=== PATIENT | male | born 1985 ===

== ENCOUNTER 2016-12-26 17:03 | Inpatient (IN) | payer BC, MEDICAID ==
[2016-12-26 18:27] LABS: BASO % 0.7 % (0.0-2.0); EOS # 0.1 K/uL (0.0-0.7); EOS % 0.9 % (0.0-4.0); HEMATOCRIT 44.3 % (35.0-51.0); LYMPH # 2.1 K/uL (1.0-4.3); LYMPH % 31.5 % (20.0-40.0); MEAN CELL VOLUME 96.1 fL (80.0-94.0); MEAN CORPUSCULAR HEMOGLOBIN 33.1 pg (27.0-31.0); MEAN CORPUSCULAR HGB CONC 34.4 g/dL (33.0-37.0); MEAN PLATELET VOLUME 8.5 fL (7.2-11.7); MONO # 0.7 K/uL (0.0-0.8); MONO % 10.1 % (0.0-10.0); RED CELL DISTRIBUTION WIDTH 14.6 % (11.5-14.5); WHITE BLOOD COUNT 6.6 K/uL (4.8-10.8)
[2016-12-26 18:33] LABS: URINE BILIRUBIN NEGATIVE (NEGATIVE); URINE BLOOD NEGATIVE (NEGATIVE); URINE COLOR Colorless (YELLOW); URINE GLUCOSE (UA) NORMAL (Normal); URINE KETONE NEGATIVE (NEGATIVE); URINE LEUKOCYTE ESTERASE NEG Leu/uL (Negative); URINE PROTEIN NEGATIVE (NEGATIVE); URINE UROBILINOGEN NORMAL mg/dL (0.2-1.0); WBC URINE < 1 /hpf (0-5)
--- NOTE | 2016-12-26 18:37 | C.PDOC ---
History Of Present Illness <Nat Miller - Last Filed: 12/26/16 18:48> <RajatcharleyAmecesar Art - Last Filed: 12/27/16 00:08> 31 y/o male comes in prescreened for detox for polysubstance abuse. Patient admits his last use was today. Denies SI, HI, or somatic complaints at this time. (Angela,Nat Garner) History Per: Patient History/Exam Limitations: no limitations Onset/Duration Of Symptoms: Days Current Symptoms Are (Timing): Still Present Suicide/Self Injury Attempted (Context): None Modifying Factor(s): Alcohol, Marijuana, Narcotics Severity: Mild Associated Symptoms: denies: Suicidal Thoughts, Suicidal Plan Involuntary Hold By: None Recent travel outside of the [place]: No Additional History Per: Patient <Nat Miller - Last Filed: 12/26/16 18:48> <EricAme Kaelyn - Last Filed: 12/27/16 00:08> Time Seen by Provider: 12/26/16 17:45 Chief Complaint (Nursing): Substance Abuse Past Medical History Reviewed: Historical Data, Nursing Documentation, Vital Signs - Medical History PMH: No Chronic Diseases Surgical History: No Surg Hx Family History: States: Unknown Family Hx - Social History Hx Alcohol Use: Yes Hx Substance Use: Yes - Immunization History Hx Tetanus Toxoid Vaccination: No Hx Influenza Vaccination: Yes (2016) Hx Pneumococcal Vaccination: No <Silvia Millerbealex Garner - Last Filed: 12/26/16 18:48> Vital Signs: Last Vital Signs Temp 97.5 F L 12/26/16 17:05 Pulse 71 12/26/16 17:05 Resp 20 12/26/16 17:05 BP 129/83 12/26/16 17:05 Pulse Ox 97 12/26/16 18:51 Review Of Systems Except As Marked, All Systems Reviewed And Found Negative. Constitutional: Positive for: Other (Polysubstance abuse). Negative for: Fever , Chills Cardiovascular: Negative for: Chest Pain Respiratory: Negative for: Shortness of Breath Gastrointestinal: Negative for: Abdominal Pain Skin: Negative for: Rash Psych: Positive for: Anxiety. Negative for: Psychosis, Suicidal ideation, Other (HI) <Nat Miller - Last Filed: 12/26/16 18:48> Physical Exam - Physical Exam Appears: Non-toxic, No Acute Distress, Other (Appears anxious) Skin: Warm, Dry Head: Atraumatic, Normacephalic Eye(s): bilateral: Normal Inspection Oral Mucosa: Moist Chest: Symmetrical Cardiovascular: Rhythm Regular, No Murmur Respiratory: Normal Breath Sounds, No Rales, No Rhonchi, No Wheezing Gastrointestinal/Abdominal: Soft, No Tenderness Back: Normal Inspection, No CVA Tenderness Neurological/Psych: Oriented x3 <Nat Miller - Last Filed: 12/26/16 18:48> ED Course And Treatment - Laboratory Results Result Diagrams: 12/26/16 18:21 12/26/16 18:21 Lab Interpretation: Normal O2 Sat by Pulse Oximetry: 97 (RA) Pulse Ox Interpretation: Normal Progress Note: Case discussed with crisis test engine evaluator who request labs and will evaluate for Detox admission Reassessment Condition: Unchanged <Nat Miller - Last Filed: 12/26/16 18:48> - Laboratory Results Result Diagrams: 12/26/16 18:21 12/26/16 18:21 <Ame Reyes - Last Filed: 12/27/16 00:08> Medical Decision Making <Nat Miller - Last Filed: 12/26/16 18:48> <Ame Reyes - Last Filed: 12/27/16 00:08> Medical Decision Making: Plans: * Blood labs * UA (Nat Miller) Disposition - Disposition Disposition Time: 19:00 - POA Present On Arrival: None <Nat Miller - Last Filed: 12/26/16 18:48> - Disposition Disposition Time: 00:07 <mAe Reyes - Last Filed: 12/27/16 00:08> - Disposition Condition: STABLE Forms: [facility] (Bots[place]an) - Clinical Impression Clinical Impression: Drug abuse, Alcohol abuse - Scribe Statement The provider has reviewed the documentation as recorded by the Scribe <Nat Miller - Last Filed: 12/26/16 18:48> <Ame Reyes - Last Filed: 12/27/16 00:08> - Scribe Statement Tonie quigley All medical record entries made by the Scribe were at my direction and personally dictated by me. I have reviewed the chart and agree that the record accurately reflects my personal performance of the history, physical exam, medical decision making, and the department course for this patient. I have also personally directed, reviewed, and agree with the discharge instructions and disposition. (Nat Miller) Physician Patient Turnover Patient Signed Over To: Ame Reyes Handoff Comments: pending crisis evaluation <Nat Miller - Last Filed: 12/26/16 18:48> Handoff Comments: Patient signed over to Dr Concepcion pending admission for alcohol detox. <Ame Reyes - Last Filed: 12/27/16 00:08>
[2016-12-26 18:46] LABS: ALKALINE PHOSPHATASE 76 U/L (38-126); ALT/SGPT 117 U/L (21-72); AST/SGOT 70 U/L (17-59); BILIRUBIN,TOTAL 0.7 mg/dL (0.2-1.3); BLOOD UREA NITROGEN 10 mg/dL (9-20); CALCIUM 8.8 mg/dl (8.6-10.4); CARBON DIOXIDE 26 mmol/L (22-30); CHLORIDE 104 mmol/L (98-107); GFR AFRICAN-AMERICAN > 60; GLUCOSE,RANDOM 89 mg/dL (75-110); POTASSIUM 3.8 mmol/L (3.6-5.2); SODIUM 145 mmol/L (132-148); TOTAL PROTEIN 8.3 g/dL (6.3-8.3)
[2016-12-26 19:11] LABS: ALB/GLOB RATIO 1.4 (1.0-2.1)
[2016-12-26 19:12] LABS: ALCOHOL SERUM 397 mg/dl (0-10)
--- NOTE | 2016-12-27 06:51 | PCM.BM ---
<David Bennett - Last Filed: 12/27/16 06:50> Treatment Plan Problems - Problems identified on initial assessmt Alcohol Abuse Date Initiated: 12/27/16 Time Initiated: 05:45 Assessment reference: NA Status: Active Treatment assets and liabiliti Patient Assests: motivated, ADL independent, physically healthy, good support system, negotiates basic needs, good past tx response Patient Liabilities: substance abuse (ETOH), medical problems - Milieu Protocol Maintain good personal hygiene: daily Encourage regular showers, daily Remind patient to perform daily oral care Conduct patient checks and document Observation sheet: Q15 minutes Maintain personal safety: every shift Educate patient to report safety concerns to staff, every shift Monitor environment for contraband/sharps Medication safety: Monitor for expected outcome, potential side effects: every shift, Assess barriers to learning: every shift, Assess readiness for medication education: every shift <Ryan Guillen - Last Filed: 12/28/16 00:28> - Diagnosis (1) Alcohol use disorder, severe, dependence Status: Acute Interventions: 12/28/16 00:28 * Assess 7x/week regarding severity of withdrawal * Educate regarding risks, benefits, side effects and alternatives of medications * Use Motivational Interviewing for abstinence * Use CBT for relapse prevention * Medication management for withdrawal symptoms * Encourage medication assisted treatment *
[2016-12-27] MEDS ORDERED: Multiple Vitamins Tab PO SCH (10:00)
[2016-12-27] MEDS: Multiple Vitamins Tab PO SCH (10:50)
--- NOTE | 2016-12-27 13:25 | PCM.PSYCH ---
Initial Psychiatric Evaluation - Initial Psychiatric Evaluation Type of Admission: Voluntary Legal Status: Capacity Chief Complaint (in patient's own words): "Not doing well" History of Present Illness and Precipitating Events: The patient is seen, chart reviewed and case discussed. This is a 31-year-old male, single with no child, living with his girlfriend and works as a construction consultant. The patient is here for alcohol detox; drinking 2 pints for the last almost 20 years. This is his second detox and he was also in rehabilitation 1 time "long ago" He used naltrexone in the past but doesn't take it anymore and he did not go to . He also inhales cocaine for the last 5 years "on and off;" approximately twice a week. He smokes up to 5 joints a day since his teenage years and sometimes uses PCP. His urine was negative this time. He denies all other drugs but smokes 1 ppd He has some depressive symptoms and anxiety. Past psych history: He was given Remeron for depression but never been hospitalized. No suicide attempts Family psych history: Lots of alcoholism and drug use. One of the uncles who abused alcohol also had psychiatric problems. Medical history: Denies Current Medications: Active Medications Generic Name Dose Route Start Last Admin Trade Name Freq PRN Reason Stop Dose Admin Clonidine HCl 0.1 mg 12/27/16 06:29 Catapres PO Q6 PRN Symptoms of alcohol withdrawl Folic Acid 1 mg 12/27/16 10:00 12/27/16 09:38 Folic Acid PO 1 mg DAILY CASSIE Administration Gabapentin 300 mg 12/27/16 11:00 12/27/16 11:11 Neurontin PO 300 mg BID CASSIE Administration Lorazepam 2 mg 12/27/16 11:00 12/27/16 11:11 Ativan PO 01/01/17 10:59 2 mg Q6H CASSIE Administration Taper Mirtazapine 15 mg 12/27/16 22:00 Remeron PO HS CASSIE Multivitamins 1 tab 12/27/16 11:00 12/27/16 10:50 Hexavitamin PO Not Given DAILY CASSIE Pneumococcal Polyvalent Vaccine 0.5 ml 12/30/16 10:00 Pneumovax 23 Vaccine IM 12/30/16 10:01 .ONCE ONE Thiamine HCl 100 mg 12/27/16 10:00 12/27/16 09:38 Vitamin B1 Tab PO 100 mg DAILY CASSIE Administration Past Psychiatric History - Past Psychiatric History Previous Treatment History: Intensive Outpatient Pertinent Medical Hx (Current Medical&Sleep Prob, Allergies): Allergies Allergy/AdvReac Type Severity Reaction Status Date / Time No Known Allergies Allergy Verified 12/26/16 17:15 No Known Home Med 12/26/16 Review of Systems - Neurological Neurological: UNREMARKABLE - Psychiatric Psychiatric: Abnormal Sleep Pattern, Anxiety, Change in Appetite, Difficulty Concentrating. absent: Hallucinations, Homicidal Ideation, Suicidal Ideation Mental Status Examination - Personal Presentation Personal Presentation: Looks stated age - Affect Affect: Constricted - Motor Activity Motor Activity: Calm - Reliability in Providing Information Reliability in Providing Information: Good - Speech Speech: Organized - Mood Mood: Depressed, Anxious - Formal Thought Process Formal Thought Process: No Impairment - Cognitive Functions Orientation: Person, Place, Situation, Time Sensorium: Alert Attention/Concentration: Attentive Estimate of Intelligence: Average Judgement: Intact, as evidence by: Insight regarding need for hospitalization Memory: Recent intact, as evidence by: Ability to recall events of the day, Remote intact, as evidenced by: Abilit to recall sig. life events - Risk Risk: Seizure, Withdrawal, Diminished functioning - Strength & Assets Inventory Strength & Assets Inventory: Cooperative - Limitations Limitations: Other DSM 5 DX - DSM 5 DSM 5 Diagnosis: Alcohol withdrawal Alcohol use disorder, severe Cocaine use disorder, moderate Cannabis use disorder, severe PCP use disorder, moderate Tobacco use disorder Depressive disorder, unspecified - Recommended/Plan of Treatment Treatment Recommendations and Plan of Treatment: Ativan detox As needed medications Gabapentin for augmentation Attend groups and activities Supportive therapy and psychoeducation [place] for abstinence CBT for relapse prevention Encourage MAT - topamax for now Refer to rehab or IOP Attend self-help groups as well remeron for depression/insomnia Patch and [place] for smoking 34 min Projected ELOS: 4-5 days Prognosis: good with treatment Discharge Plan and Discharge Criteria: No wdw sxs Refer to IOP and AA, consider rehab and MAT - Smoking Cessation Smoking Cessation Initiated: Yes
[2016-12-28] MEDS: Multiple Vitamins Tab PO SCH (09:52)
--- NOTE | 2016-12-28 13:26 | PCM.PYCHPN ---
Psychiatric Progress Note - Psychiatric Progress Note Patient seen today, length of contact: 16 min Patient Chief Complaint: "Better today" Problems Identified/Issues Discussed: The pt is seen, chart reviewed, case discussed with staff. The pt is compliant with medications and reports no side-effects. Symptoms are improving but needs more time to stabilize. After care discussed, support and psychoeducation given. Medication Change: Yes (detox changes daily) Medical Record Reviewed: Yes Mental Status Examination - Cognitive Function Orientation: Person, Place, Situation, Time Memory: Intact Attention: WNL Concentration: WNL Association: WNL Fund of Knowledge: WNL - Mood Mood: Depressed, Anxious - Affect Affect: Constricted - Speech Speech: Appropriate - Formal Thought Process Formal Thought Process: No Impairment - Suicidal Ideation Suicidal Ideation: No - Homicidal Ideation Homicidal Ideation: No Goal/Treatment Plan - Goal/Treatment Plan Need for Continued Stay: Discharge may exacerbated symptoms, Severe functional impairment Progress Toward Problem(s) and Goals/Treatment Plan: Ativan detox As needed medications Gabapentin for augmentation Attend groups and activities Supportive therapy and psychoeducation [place] for abstinence CBT for relapse prevention Encourage MAT - topamax for now Refer to rehab or IOP Attend self-help groups as well remeron for depression/insomnia Patch and [place] for smoking
[2016-12-29] MEDS: Multiple Vitamins Tab PO SCH (09:24)
--- NOTE | 2016-12-29 17:31 | PCM.PYCHPN ---
Psychiatric Progress Note - Psychiatric Progress Note Patient seen today, length of contact: 16 min Patient Chief Complaint: "I nicotine craving and need nicotine patch" Problems Identified/Issues Discussed: The pt is seen, chart reviewed, case discussed with staff. The pt reported that he has nicotine craving and need a nicotine patch. Support given, CBT and [place] used briefly No new symptoms reported, improving slowly and needs more time No SEs from medications, risks discussed. After care discussed DSM 5 Symptoms Update: Alcohol withdrawal Alcohol use disorder, severe Cocaine use disorder, moderate Cannabis use disorder, severe PCP use disorder, moderate Tobacco use disorder Depressive disorder, unspecified Medication Change: Yes (detox changes daily) Medical Record Reviewed: Yes Mental Status Examination - Cognitive Function Orientation: Person, Place, Situation, Time Memory: Intact Attention: WNL Concentration: WNL Association: WNL Fund of Knowledge: WN Decription of patient's judgement and insights: fair/fair - Mood Mood: Depressed, Anxious - Affect Affect: Constricted - Speech Speech: Appropriate - Formal Thought Process Formal Thought Process: No Impairment - Suicidal Ideation Suicidal Ideation: No - Homicidal Ideation Homicidal Ideation: No Goal/Treatment Plan - Goal/Treatment Plan Need for Continued Stay: Discharge may exacerbated symptoms, Severe functional impairment Progress Toward Problem(s) and Goals/Treatment Plan: Ativan detox As needed medications Gabapentin for augmentation Attend groups and activities Supportive therapy and psychoeducation [place] for abstinence CBT for relapse prevention Encourage MAT - topamax for now Refer to rehab or IOP Attend self-help groups as well remeron for depression/insomnia Patch and [place] for smoking Estimated Date of D/C: 12/31/16 - Smoking Cessation Smoking Cessation Initiated: Yes
[2016-12-29 18:37] VITALS: RESP 18
[2016-12-30 09:35] VITALS: BP 120/85; PULSE 89; TEMP 97.7; O2SAT 100
[2016-12-30] MEDS: Multiple Vitamins Tab PO SCH (09:59)
[2016-12-30] MEDS ORDERED: Influenza Vaccine 60 mcg/0.5 mL SYR (4YR UP) IM ONE (10:00)
[2016-12-30] MEDS ORDERED: Pneumococcal 23-Valent Vaccine IM ONE (10:00)
--- NOTE | 2016-12-30 10:33 | PCM.PYCHDC ---
Mental Status Examination - Mental Status Examination Orientation: Person, Place, Situation, Time Memory: Intact Mood: Neutral Affect: Other (euthymic) Speech: Appropriate Attention: WNL Concentration: WNL Association: WNL Fund of Knowledge: WNL Formal Thought Process: No Impairment Description of patient's judgement and insight: fair/fair Psychotic Thoughts and Behaviors: denied Suicidal Ideation: No Current Homicidal Ideation?: No Discharge Summary - Discharge Note Reason for Hospitalization: The patient is here for alcohol detox; drinking 2 pints for the last almost 20 years. This is his second detox and he was also in rehabilitation 1 time "long ago" He used naltrexone in the past but doesn't take it anymore and he did not go to . He also inhales cocaine for the last 5 years "on and off;" approximately twice a week. He smokes up to 5 joints a day since his teenage years and sometimes uses PCP. His urine was negative this time. He denies all other drugs but smokes 1 ppd He has some depressive symptoms and anxiety. Past psych history: He was given Remeron for depression but never been hospitalized. No suicide attempts Family psych history: Lots of alcoholism and drug use. One of the uncles who abused alcohol also had psychiatric problems. Consultations:: List each consultation separately and include: 1. Reason for request. 2. Findings. 3. Follow-up Summary of Hospital Course include:: 1. Description of specific treatment plan utilized for patients during their course of treatmen. 2. Summarize the time- course for resolution of acute symptoms and/or regressed behaviors. 3. Describe issues identified and worked on during hospitalization. 4. Describe medication utilized. 5. Describe medical problems identified and treated. 6. Reassessment of suicide risk Summary of Hospital Course: The pt was admitted and started on treatment with psychotherapy, support, psychoeducation and medications. [place] and CBT used. The pt requested to leave earlier. He did not completed Ativan taper detox for etoh. at the time of d/c he denied etoh withdrawal symptoms. He denied tremors, n/z, hot and cold flashes. His vitals were stable. He was educated that he needs to complete his detox. Psychoeducation was provided regarding relapse issues, withdrawal symptoms, DT. he verbalized understanding and stated that he will return if he had any symptoms. He stated that he is doing well and he has to move from [place] to [place] as he has job interview tomorrow as well as he had an appointment with drug rehab program in [place] on Saturday at 9am. He was d/c with meds prescriptions. The pt attended groups and activities, as well as milieu therapy. All the risks and benefits of medications are discussed and the patient understood and agreed. The pt improved with the treatments provided. After care discussed with the patient. at the time of d/c he denied SI, HI, intent or plan. He denied perceptual disturbances. Time spend 25 minutes - Diagnosis (1) Alcohol abuse Status: Resolved (2) Alcohol use disorder, severe, dependence Status: Resolved (3) Drug abuse Status: Resolved - Final Diagnosis (DSM 5) Condition upon Discharge: STABLE Disposition: HOME/ ROUTINE Follow-up Treatment Plan: Ativan detox As needed medications Gabapentin for augmentation Attend groups and activities Supportive therapy and psychoeducation [place] for abstinence CBT for relapse prevention Encourage MAT - topamax for now Refer to rehab or IOP Attend self-help groups as well remeron for depression/insomnia Patch and [place] for smoking Prescriptions/Medication Reconciliation: Gabapentin [Neurontin] 300 mg PO BID 15 Days #30 cap Mirtazapine [Remeron] 15 mg PO HS 15 Days #15 tab Multivitamins [Hexavitamin] 1 tab PO DAILY 30 Days #30 tab Topiramate [Topamax] 50 mg PO BID 15 Days #30 tab traZODone [Desyrel] 100 mg PO HS 15 Days #15 tab - Antipsychotic Medications Pt discharged on 2 or more routine antipsychotic medications: No
== END 2016-12-30 11:20 | disposition home or self-care (01) | DRG 895 ==
LOC: C.ER 17:03 → C.7D 12-27 04:31
PROC: HZ2ZZZZ Detoxification Services for Substance Abuse Treatment (ICD-10-PCS; principal; 2016-12-27)
PROC: HZ59ZZZ Individual Psychotherapy for Substance Abuse Treatment, Supportive (ICD-10-PCS; 2016-12-27)
PROC: HZ46ZZZ Group Counseling for Substance Abuse Treatment, Psychoeducation (ICD-10-PCS; 2016-12-27)
PROC: GZ3ZZZZ Medication Management (ICD-10-PCS; 2016-12-27)
PROC: HZ90ZZZ Pharmacotherapy for Substance Abuse Treatment, Nicotine Replacement (ICD-10-PCS; 2016-12-27)
DX: F10.230 Alcohol dependence with withdrawal, uncomplicated (principal); F14.20 Cocaine dependence, uncomplicated; F16.20 Hallucinogen dependence, uncomplicated; F12.20 Cannabis dependence, uncomplicated; F17.210 Nicotine dependence, cigarettes, uncomplicated; F32.9 Major depressive disorder, single episode, unspecified; F41.9 Anxiety disorder, unspecified; G47.00 Insomnia, unspecified